=== PATIENT | female | born 1975 | race American Indian/Alaskan Native ===

== ENCOUNTER 2018-03-17 11:44 | Outpatient (CLI) | payer OTHER ==
--- NOTE | 2018-03-18 15:54 | Magnetic Resonance Report ---
BILATERAL BREAST MRI WITHOUT AND WITH CONTRAST: 03/17/18 11:44:00 CLINICAL: Increased risk for breast cancer. COMPARISON:None. TECHNIQUE: Axial 1.0-mm T1 without, axial high resolution 2.0-mm T2 and axial 1.0-mm dynamic Vibrant high-resolution postcontrast T1 fat saturation sequences on a 1.5 Rowan magnet. The examination was performed with an 8 channel dedicated [place] breast coil. Post processing with CAD and subtraction was performed on an [employer] workstation. 18.0 cc of Multihance was injected without incident for the contrast portion of the exam. Consent was obtained prior to the administration of the contrast. FINDINGS: Right: Minimal background parenchymal enhancement. No mass or suspicious enhancement. No suspicious lymph nodes. Left: Minimal background parenchymal enhancement. No mass or suspicious enhancement. No suspicious lymph nodes. IMPRESSION: Normal study. Recommend routine mammographic screening. BI-RADS 1 - - Negative
== END 2018-03-17 11:45 | disposition home or self-care (01) ==
LOC: SPVIMAG 11:44
PROVIDERS: ATTEND Surgery
DX: Z80.3 Family history of malignant neoplasm of breast (principal)
CPT/HCPCS: A9577; C8908; 77059

== ENCOUNTER 2020-07-16 09:16 | Outpatient (CLI) | payer OTHER ==
--- NOTE | 2020-07-17 08:30 | Magnetic Resonance Report ---
BILATERAL BREAST MRI WITH AND WITHOUT CONTRAST CLINICAL INFORMATION/INDICATION: Patient presents for high-risk screening breast MRI secondary to fam merle history of breast cancer. TECHNICAL: Coronal STIR, axial T1 and T2-weighted fat sat images were obtained precontrast. Gadoliniu m-based contrast was injected intravenously and serial axial T1 weighted images with fat saturation w ere obtained. 3-D MIP projections, kinetic analysis and subtraction imaging was utilized to evaluate. A dedicated 8-channel breast coil was used for image acquisition. COMPARISON: Prior mammogram 12/29/2019 and breast MRI 03/17/2018 FINDINGS: Right breast: There is heterogeneously dense fibroglandular tissue. There is moderate background pare nchymal enhancement. No suspicious areas of enhancement or architectural distortion identified in the right breast. There is no right axillary or internal mammary adenopathy. Left breast: There is heterogeneously dense fibroglandular tissue. There is moderate background paren chymal enhancement. No suspicious areas of enhancement or architectural distortion identified in the left breast. There is no left axillary or internal mammary adenopathy. IMPRESSION: 1. No suspicious MRI abnormality identified in either breast. Follow up recommendation: Back to schedule. BI-RADS Category 1: Negative. Signer Name: Latisha Tyler MD Signed: 07/17/2020 8:25 AM Workstation Name: [id number]
== END 2020-07-16 09:17 | disposition home or self-care (01) ==
LOC: SPVIMAG 09:16
PROVIDERS: ATTEND Surgery
DX: Z12.31 Encounter for screening mammogram for malignant neoplasm of breast (principal); N64.89 Other specified disorders of breast; Z80.3 Family history of malignant neoplasm of breast
CPT/HCPCS: A9577; C8908; 77049

== ENCOUNTER 2021-01-13 08:35 | Outpatient (CLI) | payer OTHER ==
--- NOTE | 2021-01-13 10:40 | Mammography Report ---
DIGITAL SCREENING MAMMOGRAM WITH TOMOSYNTHESIS WITH CAD, 01/13/2021 CLINICAL INFORMATION / INDICATION: Routine Screening Mammography. TECHNIQUE: Digital bilateral 2D and 3D mammography with tomosynthesis was obtained in the craniocaud al and mediolateral oblique projections. Computer-Aided Detection (CAD) analysis was used for interp retation of this study. COMPARISON: 12/29/2019, 12/26/2018 FINDINGS: Breast Density: The breasts are heterogeneously dense, which may obscure small masses. No dominant mass, suspicious calcifications, or architectural distortion in either breast. A biopsy c lip is present in the right breast. There is a stable benign-appearing small nodule in the upper inner quadrant of the left breast. Overa ll, no significant interval change. IMPRESSION: No mammographic evidence of malignancy. Follow up recommendation: Routine yearly BI-RADS Category 2: Benign. A "normal" or negative report should not discourage follow up or biopsy of a clinically significant f inding. A written summary of these findings will be mailed to the patient. The patient will be entered into a mammography reporting system which will generate a reminder letter for the patient's next appointmen t at the appropriate interval. The [employer] recommends yearly mammograms starting at age 40 and continuing as l sheron as a woman is in good health. Breast MRI is recommended for women with an approximate 20-25% or greater lifetime risk of breast cancer, including women with a strong family history of breast or ova floyd cancer or who have been treated for Hodgkin's disease. Signer Name: Sonal Reddy MD Signed: 01/13/2021 10:36 AM Workstation Name: [id number]
== END 2021-01-13 08:36 | disposition home or self-care (01) ==
LOC: SPVWC 08:35
PROVIDERS: ATTEND Surgery
DX: Z12.31 Encounter for screening mammogram for malignant neoplasm of breast (principal); N64.89 Other specified disorders of breast
CPT/HCPCS: 77063; 77067